=== PATIENT | male | born 1975 | race Caucasian/White ===

== ENCOUNTER 2023-04-26 12:31 | Outpatient (CLI) | payer BC, SELFPAY ==
--- NOTE | ~2023-04-26 | US_ITS ---
EXAMINATION: US soft tissue upper back DATE: 04/26/2023 13:03 INDICATION: Localized swelling, mass and lump, right upper back. TECHNIQUE: Multiple grayscale and Doppler ultrasound images of the upper back were obtained. COMPARISON: None FINDINGS: In the patient's area of concern in right posterior thorax, there is a 5.8 x 4.5 x 1.3 cm s ubcutaneous mass with similar echotexture and echogenicity to normal subcutaneous fat, consistent wit h a lipoma. IMPRESSION: 1. 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 Reviewed, dictated and finalized at location E. NG CRATER
== END 2023-04-26 12:32 | disposition home or self-care (01) ==
PROVIDERS: PCP Family Medicine; Visit Provider Physician Assistant Medical
DX: D17.1 Benign lipomatous neoplasm of skin and subcutaneous tissue of trunk (principal); R22.32 Localized swelling, mass and lump, left upper limb
CPT/HCPCS: 76604

== ENCOUNTER 2023-05-29 12:29 | Emergency (ER) | payer BC, SELFPAY ==
[2023-05-29] VITALS (11 sets, daily range): BP systolic 112–142; BP diastolic 72–88; PULSE 84–113; RESP 14–18; TEMP 36.8; O2SAT 97–99
--- NOTE | ~2023-05-29 | XR_ITS ---
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 RESULT: Lines, tubes, and devices: None. Lungs and pleura: Clear. Cardiomediastinal silhouette: Stable. Other: No acute osseous or upper abdominal finding. IMPRESSION: No acute cardiopulmonary process. Reviewed, dictated and finalized at location K. E MAKER
--- NOTE | 2023-05-29 12:31 | ECG_ITS ---
Measurements Intervals [place] Rate: 114 P: 13 MS: 116 QRS: 10 QRSD: 114 T: 30 QT: 324 QTc: 446 Interpretive Statements SINUS TACHYCARDIA WITH SHORT MS INTERVAL INCOMPLETE RIGHT BUNDLE BRANCH BLOCK [90+ ms QRS DURATION, TERMINAL R IN V1/V2, 40+ ms S IN I/aVL/V4/V5/V6] BORDERLINE ECG NO PREVIOUS ECG AVAILABLE FOR COMPARISON Electronically Signed On 05-29-2023 18:28:28 [facility]ULER by Mynor Ray M.D.
--- NOTE | 2023-05-29 15:12 | PC.NURSE ---
Report given to Amy VIRGEN, all questions answered
[2023-05-29 15:17] LABS: Basophils Absolute Auto 0.1 K/mm3 (0.0-0.1); Basophils Percent Auto 0.8 % (0.2-1.2); Eosinophils Absolute Auto 0.2 K/mm3 (0-0.3); Hematocrit 43.9 % (42.0-52.0); Hemoglobin 14.7 g/dL (14.0-18.0); Immature Granulocyte Absolute 0.02 K/mm3 (0.00-0.031); Immature Granulocyte Percent A 0.3 % (0-0.5); Lymphocytes Absolute Auto 2.45 K/mm3 (0.9-3.2); Lymphocytes Percent Auto 32.8 % (18.3-44.2); Mean Corpuscular HGB Conc 33.5 g/dl (32-36); Mean Corpuscular Hemoglobin 28.4 pg (26-34); Mean Corpuscular Volume 84.9 fl (80-100); Mean Platelet Volume 10.6 fl (7.4-10.4); Monocytes Absolute Auto 0.7 K/mm3 (0.1-0.6); Neutrophils Absolute Auto 4.1 K/mm3 (1.3-6.7); Neutrophils Percent Auto 55.1 % (45.5-73.1); Platelet Count Result 197 k/mm3 (150-375); Red Blood Count 5.17 M/mm3 (4.6-6.20); Red Cell Distribution Width 12.6 % (11.5-14.5); White Blood Count 7.5 K/mm3 (4.5-10.0)
--- NOTE | 2023-05-29 15:17 | ED.ARRPALP ---
HPI - Arrhythmia/Palpitations General Chief Complaint: Arrhythmia/Palpitations Stated Complaint: jincreased HR Time Seen by Provider: 05/29/23 14:51 History of Present Illness HPI narrative: 47-year-old male with prior history of heart palpitations presenting to the emergency department for evaluation 30 minutes of increased heart rate. The patient states today at his child's birthday democrat had onset of rapid heart rate where his heart rate went into the 160s to 170s for approximately 30 minutes. Patient states he did feel that his heart was going fast and did have a pounding sensation in his chest but denied any chest pain. Patient states he did have some pressure in the back of his skull. Patient states he has had this happen before and when the rapid heart rate resolves the other symptoms resolve and this is what occurred today. At time of evaluation patient's heart rate is in the 90s and patient denies any complaints. Patient reports he did have approximately 9. Yesterday did have some cups of coffee this morning. Patient denies any prior history of DC. patient states he does sometimes have this happen but it lasted few minutes and coughing can get him out of this rhythm. Related Data Home Medications Medication Instructions Recorded Confirmed No Home Medications 03/09/19 04/14/23 Allergies Allergy/AdvReac Type Severity Reaction Status Date / Time No Known Allergies Allergy Unknown Verified 05/29/23 14:57 Review of Systems Review of Systems: All systems reviewed & are unremarkable except as noted in HPI and below PMFSH Past Medical History Medical History (Updated 05/30/23 @ 00:00 by Obdulia Awan) Osteoarthritis Scoliosis Social History Social History Smoking status: Never smoker Alcohol intake: current Drinks per week: 7 Substance use: never Substance use type: does not use Exam Narrative: APPEARANCE: Well appearing, no pain, no distress, well-nourished. HEAD: normocephalic, atraumatic. EYES: PERRLA/EOMI, conjunctivae clear. NOSE: Normal no drainage EARS:TMS clear with good light reflex. THROAT: Pharynx clear, no exudate. NECK: Supple. No adenopathy, no masses. RESPIRATORY: Airway patent, respirations nonlabored. Clear to auscultation bilaterally, no rales, rhonchi, wheezing. CARDIOVASCULAR: Regular rate and rhythm without murmurs rubs or gallops. ABDOMINAL: Soft, nontender, nondistended, normal bowel sounds MUSCULOSKELETAL: Moves all extremities. Strength/ROM intact, No edema, No calf tenderness. NEURO: Alert. Cranial nerves II through XII intact. Grossly intact SKIN: Warm, dry. Normal Color Course Course Emergency Course: Patient was discharged to home with instructions for close follow-up with his primary care physician. Vital Signs Vital signs: Vital Signs Temperature 98.3 F 05/29/23 12:38 Pulse Rate 113 H 05/29/23 12:38 Respiratory Rate 18 05/29/23 12:38 Blood Pressure 142/74 H 05/29/23 12:38 Pulse Oximetry 98 05/29/23 12:38 Temperature 98.3 F 05/29/23 14:58 Pulse Rate 84 05/29/23 18:01 Respiratory Rate 14 05/29/23 18:01 Blood Pressure 126/82 05/29/23 18:01 Pulse Oximetry 98 05/29/23 18:01 Oxygen Delivery Room Air 05/29/23 14:58 MDM - Arrhythmia/Palpitations MDM Narrative Medical decision making narrative: 47-year-old male presented to the emergency department for evaluation rapid heart rate. Patient does admit to drinking alcohol last night had some coffee this morning. Patient does suspect he did have some dehydration. This may be the precipitating event for his suspected SVT. Patient is afebrile with no leukocytosis and a stable hemoglobin. No acute abnormalities the patient's CMP. TSH was negative. Patient was negative for influenza RSV and for COVID. No acute abnormality on the chest x-ray. Patient was treated with 1 L of normal saline and patient's hea
[2023-05-29 15:28] LABS: Alanine Aminotransferase 19 U/L (6-50); Albumin Level 4.4 g/dL (3.5-5.1); Alkaline Phosphatase 77 U/L (38-126); Anion Gap 11 mmol/L (8-16); Aspartate Amino Transferase 29 U/L (17-59); Blood Urea Nitrogen 17 mg/dL (9-20); Calcium 9.2 mg/dL (8.4-10.2); Carbon Dioxide 22 mmol/L (22-30); Chloride 108 mmol/L (98-107); Estimated CRCL calculation 116 ml/min; Estimated Glomerular Filt Rate > 60; Glucose 98 mg/dL (65-110); Magnesium 2.2 mg/dL (1.6-2.3); Potassium 4.1 mmol/L (3.4-5.0); Sodium 141 mmol/L (137-145)
[2023-05-29] MEDS: SODIUM CHLORIDE 0.9% IV 1,000 ML 999 ML IV CONT ×2 (15:29→17:29)
[2023-05-29 15:33] LABS: D Dimer 0.38 ug/mL (<0.48)
[2023-05-29 15:58] LABS: Thyroid Stimulating Hormone Reflex 0.657 uIU/mL (0.465-4.68)
[2023-05-29 16:07] LABS: Influenza A QL RT-PCR Negative (Negative); Influenza B QL RT-PCR Negative (Negative); RSV RNA, RT-PCR Negative (Negative); SARS-CoV-2 RNA PCR Negative (Negative)
== END 2023-05-29 18:17 | disposition home or self-care (01) ==
PROVIDERS: Emergency Provider Emergency Medicine; PCP Family Medicine
DX: R00.0 Tachycardia, unspecified (principal); R00.2 Palpitations; Z20.822 Contact with and (suspected) exposure to COVID-19; M19.90 Unspecified osteoarthritis, unspecified site; M41.9 Scoliosis, unspecified; I45.10 Unspecified right bundle-branch block
CPT/HCPCS: 36415; 71045; 80053; 83735; 84443; 85025; 85380; 87637; 93005; 96360; 96361; 99284; J7030